=== PATIENT | female | born 2000 | race Caucasian/White ===

== ENCOUNTER 2018-12-17 04:32 | Outpatient (CLI) | payer OTHER ==
[~2018-12-17] VITALS: Ht 162.6 cm; Wt 88.7 kg
[~2018-12-17 04:32] MED LIST: CALC600T24 PO; DOCU-144 PO; FER325 PO; IBUP-1542 PO; PREN-93 PO
[2018-12-17 05:13] VITALS: Ht 162.6 cm; Wt 88.7 kg
== END 2018-12-17 10:30 | disposition home or self-care (01) ==
LOC: OBT 04:32 → L-D 04:32 → OBT 10:30
PROVIDERS: ATTEND Obstetrics & Gynecology
DX: O62.9 Abnormality of forces of labor, unspecified (principal); Z3A.39 39 weeks gestation of pregnancy
CPT/HCPCS: 76815; Z7500; G0463

== ENCOUNTER 2018-12-18 19:17 | Inpatient (IN) | payer OTHER ==
[~2018-12-18] VITALS: Ht 160 cm; Wt 85.8 kg
[2018-12-18 19:56] VITALS: BP 123/81; PULSE 89; RESP 18; Ht 160 cm; Wt 85.8 kg
[2018-12-18] MEDS ORDERED: OXYTOCIN 30 UNITS/LR 500 ML IV PRN (20:30)
[2018-12-18] MEDS ORDERED: BUTORPHANOL 2 MG INJ IV PRN ×2 (20:30)
[2018-12-18] MEDS ORDERED: OXYTOCIN 30 UNITS/LR 500 ML IV SCH ×2 (20:30)
[2018-12-18] MEDS ORDERED: LIDOCAINE 1% (MPF) 30 ML INJ INJ PRN (20:30)
[2018-12-18] MEDS ORDERED: METHYLERGONOVINE 0.2 MG INJ IM PRN (20:30)
[2018-12-18] MEDS ORDERED: CARBOPROST 250 MCG INJ IM PRN (20:30)
[2018-12-18] MEDS ORDERED: IBUPROFEN 600 MG TAB PO PRN (20:30)
[2018-12-18] MEDS ORDERED: MISOPROSTOL 200 MCG TAB PR PRN (20:30)
[2018-12-18] MEDS: LACTATED RINGER'S 1,000 ML IV SCH ×3 (21:32→23:30)
[2018-12-18] MEDS ORDERED: FENTAnyl 2MCG/ML-ROPIV 0.2% 100 ML ONE (22:36)
[2018-12-18] MEDS ORDERED: NALOXONE (0.4 MG/ML) INJ IV PRN (23:00)
[2018-12-18] MEDS ORDERED: FENTAnyl 2MCG/ML-ROPIV 0.2% 100 ML BAG EPI SCH (23:00)
[2018-12-19] MEDS ORDERED: MINERAL OIL LIGHT 10 ML VIAL TOP ONE
[2018-12-19] MEDS: LACTATED RINGER'S 1,000 ML IV SCH ×2 (05:06→07:29)
[2018-12-19] MEDS ORDERED: ACETAMINOPHEN 325 MG TAB PO ONE (07:30)
[2018-12-19] MEDS ORDERED: CLINDAMYCIN 900 MG (PMX) 50 ML IVPB SCH (07:30)
[2018-12-19] MEDS ORDERED: GENTAMICIN 80 MG/NS (PMX) 50 ML IVPB SCH (07:30)
[2018-12-19] MEDS ORDERED: AMPICILLIN 2 GM/NS (PMX) 100 ML IVPB ONE (08:00)
[2018-12-19] MEDS ORDERED: ONDANSETRON 4 MG INJ IV PRN ×2 (09:30→13:30)
[2018-12-19] MEDS ORDERED: LACTATED RINGER'S 1,000 ML IV* SCH (13:07)
[2018-12-19] MEDS ORDERED: OXYTOCIN 30 UNITS/LR 500 ML IV SCH (13:07)
[2018-12-19] MEDS ORDERED: OXYTOCIN 30 UNITS/LR 500 ML IV PRN (13:30)
[2018-12-19] MEDS ORDERED: CARBOPROST 250 MCG INJ IM PRN (13:30)
[2018-12-19] MEDS ORDERED: MAGNESIUM HYDROXIDE 30ML CUP PO PRN (13:30)
[2018-12-19] MEDS ORDERED: LANOLIN HPA 1 PKT TOP PRN (13:30)
[2018-12-19] MEDS ORDERED: METHYLERGONOVINE 0.2 MG INJ IM PRN (13:30)
[2018-12-19] MEDS ORDERED: DIBUCAINE 1% 30 GM OINT TOP PRN (13:30)
[2018-12-19] MEDS ORDERED: SENNA/DOCUSATE NA (8.6MG/50MG) TAB PO PRN (13:30)
[2018-12-19] MEDS ORDERED: MISOPROSTOL 200 MCG TAB PR PRN (13:30)
[2018-12-19] MEDS ORDERED: BENZOCAINE 20% 56 ML SPRAY TOP PRN (13:30)
[2018-12-19] MEDS ORDERED: WITCH HAZEL/GLYCERIN PAD PR PRN (13:30)
[2018-12-19] MEDS ORDERED: ACETAMINOPHEN 325 MG TAB PO PRN ×2 (13:30)
[2018-12-19] MEDS ORDERED: AMPICILLIN 1 GM/NS (PMX) 50 ML IV SCH (14:30)
[2018-12-19 16:00] VITALS: BP 117/77; PULSE 87; RESP 17
[2018-12-19] MEDS: PIPER-TAZO 3.375 GM IV (PMX) 100 ML IVPB SCH (18:50)
[2018-12-19 20:00] VITALS: BP 105/65; PULSE 88; RESP 18
[2018-12-20] VITALS: BP 109/70; PULSE 90; RESP 17
[2018-12-20] MEDS: IBUPROFEN 600 MG TAB PO PRN ×2 (01:10→17:38)
[2018-12-20] MEDS: PIPER-TAZO 3.375 GM IV (PMX) 100 ML IVPB SCH ×2 (01:45→12:30)
[2018-12-20 04:00] VITALS: BP 98/51; PULSE 83; RESP 17
[2018-12-20 08:00] VITALS: BP 96/60; PULSE 86; RESP 18
[2018-12-20 16:26] VITALS: BP 113/57; PULSE 78; RESP 17
[2018-12-20 20:00] VITALS: BP 112/78; PULSE 79; RESP 20
[2018-12-21] MEDS: IBUPROFEN 600 MG TAB PO PRN ×2 (00:18→05:47)
[2018-12-21 04:24] VITALS: BP 92/51; PULSE 63; RESP 20
[2018-12-21 08:00] VITALS: BP 113/55; PULSE 86; RESP 16
[2018-12-21 15:47] VITALS: BP 116/79; PULSE 72; RESP 16
[2018-12-21 15:48] VITALS: BP 115/73; PULSE 80; RESP 16
== END 2018-12-21 16:30 | disposition home or self-care (01) | DRG 807 ==
LOC: OBT 19:17 → L-D 19:18 → OBT 20:10 → L-D 22:16 → MS1 12-19 14:57
PROVIDERS: ADMIT Obstetrics & Gynecology; ATTEND Obstetrics & Gynecology
PROC: 0W8NXZZ Division of Female Perineum, External Approach (ICD-10-PCS; 2018-12-18)
PROC: 10E0XZZ Delivery of Products of Conception, External Approach (ICD-10-PCS; principal; 2018-12-19)
DX: O80 Encounter for full-term uncomplicated delivery (principal); Z37.0 Single live birth; Z3A.39 39 weeks gestation of pregnancy
CPT/HCPCS: 62322; 80053; 83605; 85025; 85610; 85730; 86592; 86703; 86803; 86850; 86900; 86901; 87070; 87086; 87340; 88307; 99464; G0463; J0290; J1580; J2543; J2590; J3010; J7120